=== PATIENT | female | born 1975 | race Native Hawaiian/Other Pacific Islander ===

== ENCOUNTER → 2020-11-11 | Outpatient (CLI) | payer OTHER ==
--- NOTE | 2020-11-11 11:51 | Diagnostic Imaging Report ---
PROCEDURE: US Non-OB pelvis comp/trans. INDICATION: Abnormal, dysfunctional uterine bleeding. TECHNIQUE: Multiple real-time grayscale sonographic images were obtained of the pelvis transabdominally and endovaginally. CORRELATION STUDY: None. FINDINGS: UTERUS: 10.4 x 6.9 x 6.5 cm. Mass, perhaps fundal fibroid, 2.2 x 1.4 x 1.7 cm. Exophytic mass in the right aspect may reflect an additional fibroid, 3.1 x 3.3 x 2.8 cm. ENDOMETRIUM: 8 mm. Intrauterine contraceptive device is present and appears to be in a satisfactory, expected location. RIGHT OVARY: 3.7 x 2.6 x 2.5 cm. Ovary is positioned posterior to the presumed exophytic fibroid. Ovary appearing unremarkable and demonstrates blood flow. LEFT OVARY: Not visualized. This could be owing to obscuration by overlying bowel gas and/or positional. No definitive left adnexal mass. No significant free pelvic fluid. IMPRESSION: 1. Probable fibroid uterus. 2. IUD appears to be in a satisfactory, expected location in the endometrial canal. Dictated by: Dictated on workstation # [id number]
== END ==
LOC: RAD 09:48
PROVIDERS: ATTEND Obstetrics & Gynecology
DX: N93.9 Abnormal uterine and vaginal bleeding, unspecified (principal); Z97.5 Presence of (intrauterine) contraceptive device
CPT/HCPCS: 76830; 76856

== ENCOUNTER → 2021-04-07 | Outpatient (CLI) | payer OTHER ==
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
== END ==
LOC: RAD 08:45
PROVIDERS: ATTEND Nurse Practitioner Family
DX: M25.512 Pain in left shoulder (principal); M25.412 Effusion, left shoulder
CPT/HCPCS: 73221

== ENCOUNTER → 2021-12-22 | Outpatient (CLI) | payer OTHER ==
--- NOTE | 2021-12-22 14:04 | Diagnostic Imaging Report ---
PROCEDURE: Pelvic comp/transvaginal sonogram. TECHNIQUE: Complete transabdominal and transvaginal pelvic ultrasound was performed. In addition, limited pelvic Doppler was performed. INDICATION: Excessive and frequent menstruation. The uterus is anteverted measuring 8.9 x 6.2 x 6.0 cm. Endometrium is 10 mm in thickness. There is an IUD centered within the endometrial canal. There appears to be a fibroid in the right uterus measuring 4.1 x 3.9 x 3.5 cm. This compares with 3.1 x 3.3 x 2.8 cm on prior. The ovaries were not visualized due to overlying bowel gas. No adnexal mass or free fluid is detected. IMPRESSION: Right-sided fibroid does appear to be slightly increased in size when compared with examination from one year earlier. IUD is satisfactorily located within the endometrial canal. Dictated by: Dictated on workstation # [id number]
== END ==
LOC: RAD 10:00
PROVIDERS: ATTEND Nurse Practitioner Family
DX: D25.9 Leiomyoma of uterus, unspecified (principal); Z97.5 Presence of (intrauterine) contraceptive device
CPT/HCPCS: 76830; 76856

== ENCOUNTER → 2022-06-22 | Outpatient (CLI) | payer OTHER ==
--- NOTE | 2022-06-27 11:04 | Diagnostic Imaging Report ---
EXAMINATION: Bilateral 3D screening mammograms. INDICATION: Screening. COMPARISON: No previous studies are available for comparison. FINDINGS: There is high breast density bilaterally. No dominant mass is seen. There are occasional minimal punctate calcifications in both breasts. No dominant spiculated mass or clustered microcalcification with pleomorphism is identified. IMPRESSION: Category 2, benign findings. Continued physical examination and annual mammographic followup are recommended. ACR BI-RADS Category 2: Benign findings. Result letter will be mailed to the patient. Note: At least 10% of breast cancer is not imaged by mammography. Dictated by: Dictated on workstation # [id number]
== END ==
LOC: RAD 10:00
PROVIDERS: ATTEND Family Medicine
DX: Z12.31 Encounter for screening mammogram for malignant neoplasm of breast (principal)
CPT/HCPCS: 77063; 77067

== ENCOUNTER → 2022-11-30 | Outpatient (CLI) | payer OTHER ==
[~2022-11-30] MED LIST: HOLD METFORMIN - RECEIVED CONTRAST 20 ML VIAL IV SCH; IOHEXOL 350 MG/ML 100 ML (OMNIPAQUE 350) VIAL IV ONE; NS 100 ML (IVPB) BAG IV ONE
--- NOTE | 2022-11-30 10:14 | Diagnostic Imaging Report ---
PROCEDURE: CT angiography of the head with and without contrast. TECHNIQUE: Noncontrast CT of the head was obtained. Subsequently, after intravenous administration of contrast, thin section axial CT angiography of the head was performed. Source data was reformatted into multiple MIP reformats. Delayed postcontrast acquisition of the head was also acquired. Auto Exposure Controls were utilized during the CT exam to meet ALARA standards for radiation dose reduction. INDICATION: Headache and visual issues. Patient does have a family history of aneurysm. Ventricles and sulci are within normal limits. No sulcal effacement or midline shift is identified. No acute intra-axial or extra-axial hemorrhage is detected. Cisterns are patent. Visualized paranasal sinuses are clear. The delayed postcontrast images are without evidence of an enhancing lesion. CT angiographic portion of the exam demonstrates the basilar artery to be widely patent. Right and left posterior cerebral arteries are widely patent. The basilar tip is unremarkable. Right and left anterior cerebral arteries appear to be patent. Middle cerebral arteries are patent. There is a 2 to 3 mm slightly lobulated aneurysm noted at the right MCA trifurcation in the sylvian fissure. No other aneurysms are identified. No thromboemboli are detected. 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 Catheter directed angiography would be recommended for further evaluation. Dictated by: Dictated on workstation # [id number]
== END ==
LOC: RAD 08:24
PROVIDERS: ATTEND Family Medicine
DX: R51.9 Headache, unspecified (principal); R53.83 Other fatigue
CPT/HCPCS: 70496